=== PATIENT | female | born 1950 | race Caucasian/White ===

== ENCOUNTER → 2017-08-27 | Outpatient (CLI) | payer MEDICARE, BC ==
--- NOTE | 2017-08-27 10:06 | REPMRS ---
Patient History The patient states she has not had a clinical breast exam in over a year. Patient is postmenopausal. Family history of prostate cancer in father at age 50 or over. Took hormonal contraceptives for 2 years. Took unspecified hormones for 2 years. Digital Woman Screen Mammo: August 27, 2017 - Exam #: [id number] Bilateral CC and MLO view(s) were taken. Technologist: Mayelin Fabian Technologist Prior study comparison: August 05, 2016, digital woman screen mammo performed at [facility]. August 01, 2015, digital woman screen mammo performed at [facility]. FINDINGS: There are scattered fibroglandular densities. There has been no change in the appearance of the mammogram from the prior studies. There is a mild amount of residual fibroglandular tissue which is fairly symmetric. There is no interval development of dominant mass, architectural distortion, or clustered microcalcification suggestive of malignancy. ASSESSMENT: BI-RADS/ACR category 1 mammogram. Negative. Recommendation Routine screening mammogram in 1 year (for women over age 40). This mammogram was interpreted with the aid of an FDA-approved computer-aided dectection system. Electronically Signed By: Caleb Mane MD 08/27/17 [id number]
== END ==
LOC: M WHC 08:43
PROVIDERS: ATTEND Family Medicine
DX: Z12.31 Encounter for screening mammogram for malignant neoplasm of breast (principal)

== ENCOUNTER → 2018-08-31 | Outpatient (CLI) | payer MEDICARE, BC | LOC: M WHC 08:43 | DX: Z12.31 Encounter for screening mammogram for malignant neoplasm of breast (principal); Z78.0 Asymptomatic menopausal state | CPT/HCPCS: 77067 ==

== ENCOUNTER → 2019-09-27 | Outpatient (CLI) | payer MEDICARE, BC, OTHER ==
--- NOTE | 2019-09-27 11:19 | REPMRS ---
Patient History The patient states she has not had a clinical breast exam in over a year. Family history of prostate cancer at age 50 or over in father. Took hormonal contraceptives for 2 years. Took unspecified hormones for 2 years. 3D TOMOSYNTHESIS WAS PERFORMED. The [facility] lifetime risk for breast cancer is 4.3%. Digital Woman Screen Mammo: September 27, 2019 - Exam #: [id number] Bilateral CC and MLO view(s) were taken. Technologist: Jessa Mendes, Technologist Prior study comparison: August 31, 2018, bilateral digital woman screen mammo performed at [facility]. August 27, 2017, digital woman screen mammo performed at [facility]. FINDINGS: There are scattered fibroglandular densities. There has been no change in the appearance of the mammogram from the prior studies. There is a mild amount of residual fibroglandular tissue which is fairly symmetric. There is no interval development of dominant mass, architectural distortion, or clustered microcalcification suggestive of malignancy. Assessment: BI-RADS/ACR category 1 mammogram. Negative Mammogram. Recommendation Routine screening mammogram in 1 year (for women over age 40). This mammogram was interpreted with the aid of an FDA-approved computer-aided dectection system. Electronically Signed By: Caleb Mane MD 09/27/19 [id number]
--- NOTE | 2019-09-30 13:10 | DEXA ---
AP SPINE L1 - L4 1.121 -0.6 1.1 LT FEMUR TOTAL 0.960 -0.4 1.1 LT NECK 0.921 -0.8 0.8 RT FEMUR TOTAL 0.917 -0.7 0.7 RT NECK 0.871 -1.2 0.5 TOTAL BODY TOTAL OTHER COMMENTS: Normal bone densitometry of the spine. Normal bone densitometry of the left hip. There is low bone density of the right hip. The decreased density of the spine does represent a significant change. The decreased density of the left hip does represent a signature change. The decreased density of the right hip does represent a signature change. The density of the spine has decreased 17.6% since the initial exam on 03/14/2003. The spine density has decreased 8.0% since the most recent exam on 09/09/2014. The density of the left hip has decreased 15.6% since the initial exam on 03/14/2003. The density of the left hip has decreased 8.9% since the most recent exam on 09/09/2014. The density of the right hip has decreased 18.9% since the initial exam on 03/14/2003. The density of the right hip has decreased 9.7% since the most recent exam on 09/09/2014. FOLLOW-UP: Recommendation for the next bone density exam: 2 years. ALISSA
== END ==
LOC: M WHC 10:49
PROVIDERS: ATTEND Family Medicine
DX: Z12.31 Encounter for screening mammogram for malignant neoplasm of breast (principal); M89.9 Disorder of bone, unspecified

== ENCOUNTER → 2020-10-02 | Outpatient (CLI) | payer MEDICARE, BC ==
--- NOTE | 2020-10-02 09:02 | REPMRS ---
Patient History The patient states she has not had a clinical breast exam in over a year. Family history of prostate cancer at age 50 or over in father. Took hormonal contraceptives for 2 years. Took unspecified hormones for 2 years. Digital Woman Screen Mammo: October 02, 2020 - Exam #: [id number] Bilateral CC and MLO view(s) were taken. Technologist: Soumya Mendosa, Technologist Prior study comparison: September 27, 2019, bilateral digital woman screen mammo performed at [facility]. August 31, 2018, bilateral digital woman screen mammo performed at [facility]. August 27, 2017, digital woman screen mammo performed at [facility]. FINDINGS: There are scattered fibroglandular densities. The [employer] volumetric breast density category is:B. There has been no change in the appearance of the mammogram from the prior studies. There is a mild amount of scattered fibroglandular density which is fairly symmetric. There is no interval development of dominant mass, architectural distortion, or grouped microcalcification suggestive of malignancy. 3-D tomosynthesis shows no additional findings. Assessment: BI-RADS/ACR category 1 mammogram. Negative Mammogram. Recommendation Routine screening mammogram of both breasts in 1 year (for women over age 40). This patient's [facility] Lifetime Breast Cancer Risk is estimated at 4.1 %. This mammogram was interpreted with the aid of an FDA-approved computer-aided dectection system. Electronically Signed By: Harry Ross MD 10/02/20 0901
== END ==
LOC: M WHC 08:25
PROVIDERS: ATTEND Family Medicine
DX: Z12.31 Encounter for screening mammogram for malignant neoplasm of breast (principal)

== ENCOUNTER → 2021-09-06 | Outpatient (REF) | payer MEDICARE, BC | LOC: M LAB REF 16:00 | PROVIDERS: ATTEND Physician Assistant | DX: H04.332 Acute lacrimal canaliculitis of left lacrimal passage (principal) ==

== ENCOUNTER → 2022-06-20 | Outpatient (REF) | payer MEDICARE, BC | LOC: M LAB REF 17:12 | PROVIDERS: ATTEND Ophthalmology | DX: H04.339 Acute lacrimal canaliculitis of unspecified lacrimal passage (principal) ==

== ENCOUNTER → 2022-10-29 | Outpatient (CLI) | payer MEDICARE, BC, OTHER | LOC: M WHC 09:11 | PROVIDERS: ATTEND Nurse Practitioner Family | DX: Z12.31 Encounter for screening mammogram for malignant neoplasm of breast (principal) ==

== ENCOUNTER → 2023-10-31 | Outpatient (CLI) | payer MEDICARE, BC, OTHER | LOC: M WHC 09:50 | PROVIDERS: ATTEND Nurse Practitioner Family | DX: Z12.31 Encounter for screening mammogram for malignant neoplasm of breast (principal); Z13.820 Encounter for screening for osteoporosis; M85.88 Other specified disorders of bone density and structure, other site ==

== ENCOUNTER → 2024-11-02 | Outpatient (CLI) | payer MEDICARE, BC | LOC: M WHC 10:04 | PROVIDERS: ATTEND Nurse Practitioner Family | DX: Z12.31 Encounter for screening mammogram for malignant neoplasm of breast (principal); R92.333 Mammographic heterogeneous density, bilateral breasts ==

== ENCOUNTER 2025-05-25 10:59 | Day surgery (SDC) | payer MEDICARE, BC ==
[~2025-05-25] VITALS: Ht 147.3 cm; Wt 44.2 kg
[~2025-05-25 10:59] MED LIST: ATEN50TA2 PO; BRIN15DR5 OU; PERF3DRO OU; SYNT75TA PO; TRAV2.5D OU
[2025-05-25] MEDS ORDERED: LIDOCAINE 2% 100 MG/5 ML SDV (FOR ANES.) As Ordered ONE (12:12)
[2025-05-25 13:17] VITALS: TEMP 97.3
[2025-05-25 13:42] VITALS: BP 120/56; O2SAT 100
== END 2025-05-25 13:49 | disposition home or self-care (01) ==
LOC: M OPP 10:59
PROVIDERS: ATTEND Surgery
DX: Z12.11 Encounter for screening for malignant neoplasm of colon (principal); R19.5 Other fecal abnormalities; K63.5 Polyp of colon; K57.30 Diverticulosis of large intestine without perforation or abscess without bleeding; Z79.899 Other long term (current) drug therapy